=== PATIENT | male | born 1990 | race African-American/Black ===

== ENCOUNTER 2018-04-11 17:28 | Emergency (ER) | payer SELFPAY ==
[2018-04-11 17:38] VITALS: BP 127/70
--- NOTE | 2018-04-11 18:45 | ER Document Report ---
HPI - HPI Patient complains to provider of: Right hand pain Onset: Other - 2 days Onset/Duration: Persistent Quality of pain: Achy Pain Level: 2 Context: She presents complaining of right hand pain with decreased strength for the past 2 days. Patient denies any new injury. Patient denies any arm neck or upper back pain symptoms. Patient does have a previous history of fractures involving the right hand that was never managed orthopedically. Associated Symptoms: Other - Right hand pain and weakness Exacerbated by: Movement Relieved by: Denies Similar symptoms previously: No Recently seen / treated by doctor: No - ROS ROS below otherwise negative: Yes Systems Reviewed and Negative: Yes All other systems reviewed and negative - CONSTITUTIONAL Constitutional: DENIES: Fever, Chills - MUSCULOSKELETAL Musculoskeletal: REPORTS: Extremity pain - Right hand. 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 IN LAST 30 DAYS: No - HEENT HEENT: Atraumatic, Normocephalic - NECK Neck: Normal Inspection, Supple, Other - Cervical midline tenderness - RESPIRATORY Respiratory: Breath Sounds Normal, No Respiratory Distress - CARDIOVASCULAR Cardiovascular: Regular Rate, Regular Rhythm Pulses: Normal: Radial - BACK Back: Normal Inspection - MUSCULOSKELETAL/EXTREMETIES Musculoskeletal/Extremeties: MAEW, FROM, Tender - Mild generalized tenderness to right hand, No Edema - NEURO Level of Consciousness: Awake, Alert, Appropriate Motor/Sensory: No Motor Deficit, No Sensory Deficit Notes: Patient with good investigative research specialist strength to bilateral hands 5/5, right investigative research specialist minimally weaker than the left - DERM Integumentary: Warm, Dry, No Rash Course - Re-evaluation Re-evalutation: 04/11/18 Patient without any acute injury. Patient has a history of previous fractures involving the hand that was not managed orthopedically. 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 Patient complains of decreased strength with flexing the right fifth finger. Patient with good investigative research specialist strength bilaterally. Patient encouraged to follow-up with orthopedics for further evaluation of his symptoms. - Vital Signs Vital signs: Temp Pulse Resp BP Pulse Ox 98.0 F 76 16 127/70 H 97 04/11/18 17:36 04/11/18 17:36 04/11/18 17:36 04/11/18 17:36 04/11/18 17:36 - Diagnostic Test Radiology reviewed: Reports reviewed - Reviewed previous hand x-ray report. Patient with a history of right third and fourth metacarpal fractures Discharge - Discharge Clinical Impression: Right hand pain, Weakness of right hand, hx of healed fracture to right hand Condition: Stable Disposition: HOME, SELF-CARE Additional Instructions: Return immediately for any new or worsening symptoms Followup with your primary care provider, call tomorrow to make a followup appointment Follow-up with orthopedic hand specialist for further evaluation Prescriptions: Naproxen [Naprosyn 250 Nmg Tablet] 1 tab PO BID #14 tablet Forms: Smoking Cessation Education, Return to Work Referrals: CLINTON WHITE DO [ACTIVE STAFF] - Follow up as needed [facility] [Provider Group] - Follow up as needed [facility] [Provider Group] - Follow up as needed
== END 2018-04-11 18:52 | disposition home or self-care (01) ==
LOC: ER 17:28
DX: M79.641 Pain in right hand (principal); R53.1 Weakness; J45.909 Unspecified asthma, uncomplicated; F17.200 Nicotine dependence, unspecified, uncomplicated
CPT/HCPCS: 99283

== ENCOUNTER 2019-09-14 10:20 | Emergency (ER) | payer BC ==
--- NOTE | 2019-09-14 11:12 | ER Document Report ---
ED Medical Screen (RME) - General Chief Complaint: Hand Pain Stated Complaint: HAND PAIN Time Seen by Provider: 09/14/19 11:08 Mode of Arrival: Ambulatory Information source: Patient Notes: 29-year-old male patient presented to the emergency department chief complaint of inability to flex or extend his left wrist. He states he woke up like this. Denies any numbness or tingling. States there is no pain. Denies any trauma. Cap refill less than 3 seconds, strong radial pulse. Normal motor and sensation distal to area of concern. I have greeted and performed a rapid initial assessment of this patient. A comprehensive ED assessment and evaluation of the patient, analysis of test results and completion of the medical decision making process will be conducted by additional ED providers. I have specifically instructed the patient or family members with the patient to immediately return to any nursing staff should anything change in the patient's condition or with their chief complaint. TRAVEL OUTSIDE OF THE [place] IN LAST 30 DAYS: No - Related Data Allergies/Adverse Reactions: No Known Allergies Allergy (Verified 11/28/15 14:57) Past Medical History Pulmonary Medical History: Reports: Hx Asthma Renal/ Medical History: Denies: Hx Peritoneal Dialysis - Immunizations Immunizations up to date: Yes Hx Diphtheria, Pertussis, Tetanus Vaccination: Yes - 06/28/12 Physical Exam - Vital signs Vitals: Temp Pulse Resp BP Pulse Ox 97.7 F 70 16 161/103 H 100 09/14/19 10:24 09/14/19 10:24 09/14/19 10:09/14/19 10:09/14/19 10:24 Course - Vital Signs Vital signs: Temp Pulse Resp BP Pulse Ox 97.7 F 70 16 161/103 H 100 09/14/19 10:24 09/14/19 10:24 09/14/19 10:24 09/14/19 10:24 09/14/19 10:24
--- NOTE | 2019-09-14 11:54 | RADIOLOGY REPORT (SQ) ---
EXAM DESCRIPTION: WRIST LEFT 3 VIEWS COMPLETED DATE/TIME: 09/14/2019 11:43 am REASON FOR STUDY: unable to flex wrist, no trauma COMPARISON: None. NUMBER OF VIEWS: Three views. TECHNIQUE: AP, lateral, and oblique radiographic images acquired of the left wrist. LIMITATIONS: None. FINDINGS: MINERALIZATION: Normal. BONES: No acute fracture or dislocation. No worrisome bone lesions. Normal alignment. SOFT TISSUES: No soft tissue swelling. No foreign body. OTHER: No other significant finding. IMPRESSION: NEGATIVE STUDY OF THE LEFT WRIST. NO RADIOGRAPHIC EVIDENCE OF ACUTE INJURY. TECHNICAL DOCUMENTATION: JOB ID: [id number] [employer]- All Rights Reserved Reading location - IP/workstation name: [email or web address]
--- NOTE | 2019-09-14 12:50 | ER Document Report ---
ED Hand/Wrist Injury - General Chief Complaint: Weakness Stated Complaint: HAND PAIN Time Seen by Provider: 09/14/19 11:08 Mode of Arrival: Ambulatory Notes: CHIEF COMPLAINT: Left wrist drop this morning HPI: 1-year-old male who is right-hand dominant presenting to the emergency department for evaluation of left wrist drop this morning. Patient states he was fine going to bed last night denies trauma denies fever denies other illness. Patient states that he can flex at the wrist but cannot extend. Denies other injuries or complaints ROS: See HPI - all other systems were reviewed and are otherwise negative Constitutional: no fever Eyes: no drainage, no blurred vision ENT: no runny nose, no sore throat Cardiovascular: no chest pain Resp: no SOB, no cough GI: no vomiting, no diarrhea, no abdominal pain : no dysuria Integumentary: no rash Allergy: no hives Musculoskeletal: no extremity pain or swelling Neurological: + numbness/tingling, + weakness MEDICATIONS: I agree with the patient medications as charted by the RN. ALLERGIES: I agree with the allergies as charted by the RN. PAST MEDICAL HISTORY/PAST SURGICAL HISTORY: Reviewed and agree as charted by RN. SOCIAL HISTORY: Reviewed and agree as charted by RN. FAMILY HISTORY: No significant familial comorbid conditions directly related to patient complaint EXAM: Reviewed vital signs as charted by RN. CONSTITUTIONAL: Alert and oriented and responds appropriately to questions. Well-appearing; well-nourished HEAD: Normocephalic; atraumatic EYES: PERRL; Conjunctivae clear, sclerae non-icteric ENT: normal nose; no rhinorrhea; moist mucous membranes NECK: Supple without meningismus; non-tender; no cervical lymphadenopathy, no masses CARD: symmetric distal pulses RESP: Normal chest excursion without splinting or tachypnea ABD/GI: non-distended. BACK: The back appears normal and is non-tender to palpation, there is no CVA tenderness EXT: Patient is able to flex the left hand at the wrist but is unable to extend it passively or actively. He does appear to have a left wrist drop. When the hand is flexed down he is able to open and close the fingers and slightly abduct the thumb but when the wrist is brought up to a 180 degree position with the forearm he is having significant difficulty opening and closing the fingers as well as abducting the thumb. Patient has no strength loss in the left forearm on pushing or pulling. He has no biceps or triceps weakness on exam SKIN: Normal color for age and race; warm; dry; good turgor; no acute lesions noted NEURO: sensory function intact PSYCH: The patient's mood and manner are appropriate. Grooming and personal hygiene are appropriate. MDM: 29-year-old male who is right-hand dominant with Saturday night palsy left wrist. Was fine going to bed last night. No trauma. X-ray negative. discussed with Dr. Hein, attending, will place in wrist splint refer to orthopedics TRAVEL OUTSIDE OF THE [place] IN LAST 30 DAYS: No - Related Data Allergies/Adverse Reactions: No Known Allergies Allergy (Verified 11/28/15 14:57) Past Medical History - General Information source: Patient - Social History Smoking Status: Unknown if Ever Smoked Family History: Reviewed & Not Pertinent Patient has suicidal ideation: No Patient has homicidal ideation: No Pulmonary Medical History: Reports: Hx Asthma Renal/ Medical History: Denies: Hx Peritoneal Dialysis - Immunizations Immunizations up to date: Yes Hx Diphtheria, Pertussis, Tetanus Vaccination: Yes - 06/28/12 Physical Exam - Vital signs Vitals: Temp Pulse Resp BP Pulse Ox 97.7 F 70 16 161/103 H 100 09/14/19 10:24 09/14/19 10:09/14/19 10:24 09/14/19 10:24 09/14/19 10:24 Course - Vital Signs Vital signs: Temp Pulse Resp BP Pulse Ox 97.7 F 70 16 161/103 H 100 09/14/19 10:24 09/14/19 10:24 09/14/19 10:24 09/14/19 10:24 09/14/19 10:24 Procedures - Immobilization Left Distal Wrist Time completed: 13:07 Pre-Proc Neuro Vasc Exam: Abnormal - Left wrist drop Immobilizer type: Cock-up - Wrist Performed by: PCT Post-Proc Neuro Vasc Exam: Unchanged from pre-exam Alignment checked and good: Yes Discharge - Discharge Clinical Impression: Saturday night paralysis of left upper extremity Condition: Stable Disposition: HOME, SELF-CARE Additional Instructions: Use the wrist splint during the day as discussed. Follow-up closely with orthopedics for further evaluation and management it is likely you will need a physical therapy referral to help recover function. Call for appointment Forms: Return to Work Referrals: CLINTON WHITE, [ACTIVE STAFF] - Follow up as needed
[2019-09-14 13:50] VITALS: BP 151/108
== END 2019-09-14 13:38 | disposition home or self-care (01) ==
LOC: ER 10:20
DX: G81.94 Hemiplegia, unspecified affecting left nondominant side (principal); R53.1 Weakness; R20.0 Anesthesia of skin
CPT/HCPCS: 99283; 73110; L3908

== ENCOUNTER → 2020-01-18 | Outpatient (CLI) | payer BC ==
--- NOTE | 2020-01-18 16:15 | RADIOLOGY REPORT (SQ) ---
EXAM DESCRIPTION: MRI CERVICAL SPINE WITHOUT IMAGES COMPLETED DATE/TIME: 01/18/2020 4:04 pm REASON FOR STUDY: M54.2 CERVICALGIA M54.2 CERVICALGIA COMPARISON: None. TECHNIQUE: Sagittal and Axial imaging includes T1, T2, STIR and gradient echo sequences. LIMITATIONS: None. FINDINGS: ALIGNMENT: Normal. VERTEBRAE: Intact. BONE MARROW: Normal. No marrow replacement or reactive changes. DISCS: Minimal disc related osteophytes particularly anteriorly at C4-5. HARDWARE: None in the spine. CORD AND BASE OF BRAIN: Normal in size and signal intensity. SOFT TISSUES: No soft tissue masses. C1-C2: No significant spinal stenosis. C2-C3: No significant spinal stenosis or exit foraminal stenosis. C3-C4: No significant spinal stenosis or exit foraminal stenosis. C4-C5: No significant spinal stenosis or exit foraminal stenosis. C5-C6: No significant spinal stenosis or exit foraminal stenosis. C6-C7: No significant spinal stenosis or exit foraminal stenosis. C7-T1: No significant spinal stenosis or exit foraminal stenosis. UPPER THORACIC: Incompletely imaged. No significant spinal stenosis or exit foraminal stenosis. OTHER: No other significant finding. IMPRESSION: 1. Mild spondylosis but no suggestion of significant spinal stenosis. No fracture or bone lesion or cord lesion or spinal malalignment. TECHNICAL DOCUMENTATION: JOB ID: [id number] [employer]- All Rights Reserved Reading location - IP/workstation name: [email or web address]
== END ==
LOC: RAD 15:20
PROVIDERS: ATTEND Orthopaedic Surgery
DX: M47.892 Other spondylosis, cervical region (principal); M54.2 Cervicalgia
CPT/HCPCS: 72141